=== PATIENT | male | born 1980 | race Caucasian/White ===

== ENCOUNTER 2019-07-29 07:47 | Emergency (ER) | payer OTHER ==
[~2019-07-29] VITALS: Ht 175.3 cm; Wt 73.0 kg
[2019-07-29] MEDS ORDERED: LORAZEPAM 2MG/ML CPJ IM ONE (08:15)
[2019-07-29] MEDS ORDERED: KETOROLAC 30MG/ML VIAL IM ONE (08:15)
[2019-07-29] MEDS ORDERED: MORPHINE SULFATE 10 MG/ML CPJ IM ONE (08:15)
[2019-07-29 08:34] VITALS: BP 109/61
== END 2019-07-29 08:55 | disposition home or self-care (01) ==
LOC: ER 08:12
DX: M24.411 Recurrent dislocation, right shoulder (principal); M25.511 Pain in right shoulder
CPT/HCPCS: 23650; 73030; 96372; 99284; J1885; J2060; J2270; Z7610; L3670